=== PATIENT | female | born 1970 | race Asian ===

== ENCOUNTER 2016-08-22 12:06 | Emergency (ER) | payer OTHER ==
[~2016-08-22] VITALS: Ht 165.1 cm; Wt 77.1 kg
[~2016-08-22 12:06] MED LIST: LOSARTAN POTASS25 MG ORAL; MECLIZINE HCL12.5 MG ORAL
[2016-08-22] MEDS ORDERED: LORazepam 0.5mg tab ORAL ONE (12:15)
[2016-08-22] MEDS ORDERED: Meclizine 25mg tab ORAL PRN (12:15)
[2016-08-22] MEDS ORDERED: LORazepam Inj 2mg/ml 1ml IV ONE (12:15)
--- NOTE | 2016-08-22 12:19 | Emergency Room Report ---
History of Present Illness General Chief Complaint: Dizziness Source: Patient, EMS Present Illness HPI 46 YO F with acute onset of dizziness with nausea/vomiting - feels like room is spinning. No assoc headache, fever/chills, neck pain. Worse with any movement or change of position. Had dizziness before - has Meclizine - but never this bad. No sick contacts at home. Allergies: Coded Allergies: No Known Allergies (Unverified , 08/22/16) Patient History Past Medical History: other - vertigo Past Surgical History: none Pertinent Family History: none Social History: Denies: alcohol use, drug use, smoking Now: No Immunizations: UTD Reviewed Nursing Documentation: PMH: Agreed, PSxH: Agreed Nursing Documentation-PMH Hx Hypertension: Yes Review of Systems All Other Systems: negative except mentioned in HPI Physical Exam Vital Signs Date Time Temp Pulse Resp B/P Pulse Ox O2 Delivery O2 Flow Rate FiO2 08/22/16 12:02 79 16 151/81 99 Room Air Sp02 EP Interpretation: reviewed, abnormal General Appearance: normal inspection, well appearing, alert, GCS 15, moderate distress, other - Sitting on all fours in stretcher, vomiting into bag Head: normocephalic, atraumatic Eyes: bilateral eye EOMI, bilateral eye PERRL, bilateral eye other - Nystagmus ENT: normal ENT inspection, hearing grossly normal, normal voice Neck: normal inspection, full range of motion, supple, no bony tend Respiratory: normal inspection, lungs clear, normal breath sounds, no respiratory distress, no retraction, no wheezing Cardiovascular #1: regular rate, rhythm, no edema Gastrointestinal: normal inspection, normal bowel sounds, non tender, soft, no guarding, no hernia Genitourinary: no CVA tenderness Musculoskeletal: normal inspection, back normal, normal range of motion, Esteban' s Sign negative Neurologic: normal inspection, alert, oriented x3, responsive, talent sourcing specialist III-XII nml as tested, motor strength/tone normal, speech normal Psychiatric: normal inspection, judgement/insight normal, mood/affect normal Skin: normal inspection, normal color, no rash Medical Decision Making Diagnostic Impression: Primary Impression: Vertigo ER Course 46 YOF with vertigo. VSS. Afebrile. No focal neuro deficits Likely BPPV PLAN: Labs, troponin/ecg to r/o cardiac cause IVF hydration Anti-emetic, IV ativan CT head Reassess Reevaluation Time: 13:33 Last Vital Signs Date Time Temp Pulse Resp B/P Pulse Ox O2 Delivery O2 Flow Rate FiO2 08/22/16 12:02 79 16 151/81 99 Room Air Status: improved Reevaluation Impression CT head negative for acute process, SAH, tumor, mass effect Low suspicion for cerebellar CVA given rapid improvement, no ataxia on ambulation, well appearacne Labs: No leuks. No metabolic process Feels much better s/p meds, IVF Likely BPPV Advised PMD followup for ENT referral DC home Disposition: HOME, SELF-CARE Scripts Lorazepam* (ATIVAN*) 0.5 Mg Tablet 0.5 MG ORAL ONCE for vertigo for 7 Days, #7 TAB Prov: VINNIE CABALLERO M.D. 08/22/16 VINNIE CABALLERO M.D. Aug 22, 2016 12:19
[2016-08-22 12:36] VITALS: BP 124/85
[2016-08-22 12:42] LABS: BASOPHILS % (AUTO) 1.3 % (0.0-2.0); EOSINOPHILS % (AUTO) 2.5 % (0.0-3.0); LYMPHOCYTES % (AUTO) 27.7 % (20.0-45.0); MEAN CORPUSCULAR HEMOGLOBIN 30.2 PG (27.0-31.0); MEAN CORPUSCULAR HGB CONC 33.4 G/DL (32.0-36.0); MEAN CORPUSCULAR VOLUME 90 FL (80-99); MEAN PLATELET VOLUME 7.3 FL (6.5-10.1); MONOCYTES % (AUTO) 5.3 % (1.0-10.0); NEUTROPHILS % (AUTO) 63.2 % (45.0-75.0); PLATELET COUNT 286 K/UL (150-450); RED BLOOD COUNT 4.26 M/UL (4.20-5.40); RED CELL DISTRIBUTION WIDTH 12.2 % (11.6-14.8); WHITE BLOOD COUNT 5.7 K/UL (4.8-10.8)
[2016-08-22 12:57] LABS: ALANINE AMINOTRANSFERASE 11 U/L (3-33); ALBUMIN/GLOBULIN RATIO 1.4 (1.0-2.7); ANION GAP 18 (5-15); ASPARTATE AMINO TRANSFERASE 17 U/L (5-40); CARBON DIOXIDE 21 mEQ/L (20-30); CHLORIDE 98 mEQ/L (98-107); CREATININE 0.6 mg/dL (0.5-0.9); GLOMERULAR FILTRATION RATE > 60 mL/min (>60); HEMOLYSIS 3; POTASSIUM 3.3 mEQ/L (3.4-4.9); SODIUM 137 mEQ/L (135-145); TOTAL PROTEIN 6.9 g/dL (6.6-8.7); TROPONIN I < 0.30 ng/mL (<=0.30)
[2016-08-22 13:08] LABS: CKMB < 1.5 ng/mL (< 3.8)
[2016-08-22] MEDS ORDERED: ATIVAN0.5 MG ORAL (13:32)
--- NOTE | 2016-08-22 13:38 | Diagnostic Imaging Report ---
Indication: Acute onset of dizziness with nausea and vomiting, feels like the room spinning, worse with movement or change in position Technique: Continuous helical CT scanning of the head was performed without intravenous contrast material. Axial and coronal 5 mm sections were generated. Radiation dose was minimized using automated exposure control Dose: Total Dose Length Product - DLP [address] Dose Index - CTDIvol(s) 70.38 mGy. Comparison: None Findings: The ventricular system is normal in size and configuration. There is no shift of midline structures. No abnormal extra-axial fluid collections are noted. There is no evidence of intracerebral bleeding. No other abnormal high or low density areas are noted within the brain. Impression: Normal CT scan of the head without contrast material. The CT scanner at [facility] is accredited by the [employer] and the scans are performed using protocols designed to limit radiation exposure to as low as reasonably achievable to attain images of sufficient resolution adequate for diagnostic evaluation.
--- NOTE | 2016-08-22 13:45 | Diagnostic Imaging Report ---
Indication: PAIN shortness of breath Technique: One view of the chest Comparison: none Findings: The heart is upper limits of normal in size. Lungs and pleural spaces are clear. Impression: No acute process
[2016-08-22] MEDS ORDERED: Meclizine 25mg tab ORAL ONE (14:15)
[2016-08-22 14:30] VITALS: BP 118/67
[2016-08-22 16:00] VITALS: BP 124/67
[2016-08-22 16:03] VITALS: BP 124/67
--- NOTE | 2016-08-27 18:28 | Cardiology Report ---
APPROVED REPORT EKG Measurement Heart [id number] Normal sinus rhythm Normal ECG
== END 2016-08-22 16:03 | disposition home or self-care (01) ==
LOC: EDBD 12:06 → EMR 12:28
DX: R42 Dizziness and giddiness (principal); I10 Essential (primary) hypertension
CPT/HCPCS: 36415; 70450; 71010; 80053; 82550; 82553; 84484; 85025; 93005; 96360; 96374; 96375; 99284; J2405